=== PATIENT | female | born 1965 | race African-American/Black ===

== ENCOUNTER 2017-09-29 19:47 | Emergency (ER) | payer MEDICAID, SELFPAY ==
[2017-09-29 19:52] VITALS: PULSE 91; RESP 20; TEMP 36.9; O2SAT 98
--- NOTE | 2017-09-29 20:13 | ED.GENADUL ---
Disposition Clinical Impression: Acute cystitis Disposition: HOME Condition: Good Instructions: Urinary Tract Infection in Women (ED) Additional Instructions: Please follow-up with [facility]. Please follow-up with dentistry for recheck. Stop penicillin while you are taking the Keflex. Return to the emergency department for any acute concerns. Continue any regular medications Prescriptions: Cephalexin [Keflex] 500 mg PO TID #20 cap Medical Decision Making - Lab Data Laboratory Results - last 24 hr 09/29/17 20:04 Urine Color Yellow Urine Clarity Sl cloudy Urine pH 6.5 Ur Specific Pennock 1.015 Urine Protein Negative Urine Ketones Negative Urine Blood Moderate H Urine Nitrite Negative Urine Bilirubin Negative Urine Urobilinogen 0.2 Ur Leukocyte Esterase Small H Urine RBC 0-2 Urine WBC 5-10 Ur Epithelial Cells Rare Urine Crystals Negative Urine Bacteria Rare Urine Mucus Negative Urine Other Rare renal Ur Culture Indicated? Yes Urine Glucose Negative Results reviewed for labs ordered during visit: Yes - Medical Decision Making 52-year-old female presents with urinary urgency and frequency, she is recently taking penicillin for an odontogenic infection. She has multiple dental caries, was followed by [facility]. Is also followed by [facility] for primary care. She is afebrile, well-appearing, no concerning findings on examination of the oropharynx. History and urinalysis are consistent with acute cystitis. Will switch her antibiotic to Keflex. She will follow-up with [facility]. History of Present Illness - General Chief complaint: Urinary Stated complaint: UTI Time Seen by Provider: 09/29/17 20:12 Source: patient, RN notes reviewed Mode of arrival: ambulatory Limitations: no limitations - History of Present Illness Initial comments: Urinary tract infection: 52-year-old female reports the gradual onset yesterday of intermittent episodes of urinary urgency and frequency with burning of urination. She has had no vaginal discharge or bleeding. Has not been injured in any way. She denies abdominal pain, nausea, vomiting. She has not had a fever or back pain. There is no exacerbating or ameliorating factors. She is currently living in [place] and what she states is a safe home. Denies other complaints at this time. She has been taking penicillin for 6 days for a tooth infection, she has multiple dental caries and is followed by [facility]. - Related Data Cephalexin [Keflex] 500 mg PO TID #20 cap 09/29/17 Allergies Allergy/AdvReac Type Severity Reaction Status Date / Time No Known Allergies Allergy Unverified 09/29/17 19:56 Review of Systems Other: 8 systems reviewed, otherwise negative Past Medical History - Past Medical History Heart murmur, TBI Surgical history: no surgical history - Social History Alcohol use: none Drug use: none General Exam - General Limitations: no limitations General appearance: alert, in no apparent distress - Head Head exam: Present: atraumatic, normocephalic - Eye Eye exam: Present: normal apperance, PERRL, EOMI - ENT ENT exam: Present: normal exam, other (Multiple dental fractures, dental caries, partial teeth, previous extractions, proximal 50% of the teeth are remaining, there is no fluctuance, swelling, uvula is midline, tonsillar pillars are symmetric.). Absent: normal orophraynx - Neck Neck exam: Present: normal inspection, full ROM. Absent: tenderness - Respiratory Respiratory exam: Present: normal lung sounds bilaterally. Absent: respiratory distress, chest wall tenderness - Cardiovascular Cardiovascular Exam: Present: regular rate, normal rhythm. Absent: systolic murmur - GI/Abdominal GI/Abdominal exam: Present: soft. Absent: distended, tenderness - Neurological Exam Neurological exam: Present: alert, oriented X3 - Psychiatric Psychiatric exam: Present: normal mood, other (Patient has an odd affect, she is somewhat wandering historian at times, she is alert and oriented, able to demonstrate linear thought and focused responses on certain points when questioned specifically during the history.) Course Vital Signs - 24 hr 09/29/17 19:52 Temperature 36.9 C Pulse 91 H Respiratory 20 Rate Pulse Oximetry 98
[2017-09-29 20:21] LABS: Bilirubin Negative (Negative); Blood Moderate (Negative); Clarity Sl Cloudy; Glucose Negative (Negative); Ketones Negative (Negative); Leukocyte Esterase Small (Negative); Nitrite Negative (Negative); Specific Gravity 1.015 (1.005-1.025); Urobilinogen 0.2 EU/dL (Up TO 0.2); pH 6.5 (5-8)
[2017-09-29] MEDS: Cephalexin 500 MG CAP PO (20:25)
[2017-09-29 20:36] LABS: Bacteria Rare HPF (Negative); C & S Indicated? Yes; Crystals Negative HPF (Negative); Epithelial Cells Rare HPF (Negative); Mucus Negative (Negative); Other Cells Rare Renal (Negative); RBC 0-2 (0-2)
== END 2017-09-29 20:24 | disposition home or self-care (01) ==
PROVIDERS: Emergency Provider Emergency Medicine; PCP Specialist/Technologist Athletic Trainer
DX: N30.00 Acute cystitis without hematuria (principal)
CPT/HCPCS: 99283; 81003; 81015; 87086

== ENCOUNTER 2017-10-02 22:26 | Emergency (ER) | payer MEDICAID, SELFPAY ==
[2017-10-02 22:28] VITALS: BP 121/94; PULSE 81; RESP 18; TEMP 36.5; O2SAT 97
--- NOTE | 2017-10-02 23:07 | ED.GENADUL ---
Disposition Clinical Impression: Paranoia, Delusions, UTI (urinary tract infection) Disposition: STILL A PATIENT Condition: Stable Medical Decision Making - Lab Data Results reviewed for labs ordered during visit: Yes - Medical Decision Making Patient was here just a few days ago diagnosed with UTI. She has taken a few doses of the antibiotics but never actually got the prescription filled. Will recheck urinalysis here tonight as well as to urine drug screen. She denies any drug use. She does not appear to be intoxicated. She has no physical complaints. I will medically clear her to be evaluated by mental health. 00:01 - Patient was interviewed by mental health. After review of mental health notes when she was at the police station and interviewing the police commissioner that transported her from [place], we have decided to EE her and ask for a secondary certification by state psychiatrist. When I went in to discuss this with the patient, she initially was calm but quickly escalated and started accusing the state, the police, the town of [place] to be persecuting her and preventing her from living her free life. She continued to escalate and claims that [place] was a state full of transgender homosexuals who jump on straight people and attack them all the time. She became more more agitated. [place] police commissioner who was present reports that this is how she was at the police station. We will go ahead and get baseline labs for medical clearance. I will EE her and hold her for secondary certification. She will receive Ativan 1 mg p.o. for sedation. She has a one-to-one patient observer. Care management aware and will file a care plan. Patient does have evidence of UTI still so we will continue the Keflex she had been prescribed previously. 07:30 - Patient's labs are good. WBC a little up, likely related to UTI. Continue Keflex. Drug screen positive for THC. Other labs fine. Patient has been sleeping since Ativan given last night. Patient will be signed over to Dr. Martel. History of Present Illness - General Chief complaint: PsychEval Stated complaint: EVAL Time Seen by Provider: 10/02/17 22:27 Source: patient, police Mode of arrival: ambulatory - History of Present Illness Initial comments: Patient is brought in for mental health evaluation on a staff internist office based only's order after being arrested in [place] and becoming agitated, belligerent, threatening. Patient had been arrested on a trespass order. She felt that she was unjustly arrested. She had become highly agitated and belligerent while under arrest. She was evaluated by mental health at the police station. On staff internist office based only's order she was brought to the ED for mental health eval and possible EEG. On arrival here she is calm and cooperative. She has no physical complaints other than chronic pain which is unchanged. She was seen here a few days ago for urinary symptoms and while she has only taken some of her antibiotic, she states that the symptoms have resolved. She denies being suicidal. She denies being homicidal. She denies hearing voices or seeing things. In speaking with her there does appear to be some underlying paranoid thought going on, especially in regards to the police being in conclusion with higher bess. Per the [place] police commissioner who transported her, he has dealt with her for years. Her behavior over the last few weeks has been escalating. - Related Data Cephalexin [Keflex] 500 mg PO TID #20 cap 09/29/17 Allergies Allergy/AdvReac Type Severity Reaction Status Date / Time No Known Allergies Allergy Unverified 10/02/17 22:46 Review of Systems Constitutional: denies: chills, fever Eyes: denies: eye discharge, vision change ENT: denies: ear pain, congestion Respiratory: denies: cough, shortness of breath Cardiovascular: denies: chest pain Gastrointestinal: denies: abdominal pain, nausea, vomiting Genitourinary: denies: dysuria Musculoskeletal: denies: back pain Skin: denies: rash Neurological: denies: headache, weakness Psychiatric: denies: auditory hallucinations, visual hallucinations, homicidal thoughts, suicidal thoughts Past Medical History - Past Medical History Heart murmur, TBI, chronic pain Surgical history: no surgical history - Social History Smoking status: current everyday smoker Alcohol use: none Drug use: none General Exam - General Limitations: no limitations General appearance: alert, in no apparent distress - Head Head exam: Present: atraumatic, normocephalic - Eye Eye exam: Present: normal apperance - Neck Neck exam: Present: normal inspection - Respiratory Respiratory exam: Present: normal lung sounds bilaterally - Cardiovascular Cardiovascular Exam: Present: regular rate, normal rhythm, normal heart sounds - Extremities Exam Extremities exam: Present: normal inspection. Absent: pedal edema - Neurological Exam Neurological exam: Present: alert, oriented X3, CN II-XII intact, normal gait. Absent: motor sensory deficit - Psychiatric Psychiatric exam: Absent: anxious, manic, homicidal ideation, suicidal ideation - Skin Skin exam: Present: warm, dry, intact Course Vital Signs - 24 hr 10/02/17 22:28 Temperature 97.7 F Pulse 81 Respiratory 18 Rate Blood Pressure 121/94 Pulse Oximetry 97
[2017-10-02 23:12] LABS: Bilirubin Negative (Negative); Blood Moderate (Negative); Clarity Cloudy; Glucose Negative (Negative); Ketones Trace mg/dL (Negative); Leukocyte Esterase Trace (Negative); Nitrite Positive (Negative); Specific Gravity >= 1.030 (1.005-1.025); Urobilinogen 0.2 EU/dL (Up TO 0.2); pH 5.5 (5-8)
--- NOTE | 2017-10-02 23:12 | ED.GENADUL_ITS ---
Disposition Clinical Impression: Paranoia, Delusions, UTI (urinary tract infection) Disposition: STILL A PATIENT Condition: Stable Medical Decision Making - Lab Data Results reviewed for labs ordered during visit: Yes - Medical Decision Making Patient was here just a few days ago diagnosed with UTI. She has taken a few doses of the antibiotics but never actually got the prescription filled. Will recheck urinalysis here tonight as well as to urine drug screen. She denies any drug use. She does not appear to be intoxicated. She has no physical complaints. I will medically clear her to be evaluated by mental health. 00:01 - Patient was interviewed by mental health. After review of mental health notes when she was at the police station and interviewing the police records clerk that transported her from [place], we have decided to EE her and ask for a secondary certification by state psychiatrist. When I went in to discuss this with the patient, she initially was calm but quickly escalated and started accusing the state, the police, the town of [place] to be persecuting her and preventing her from living her free life. She continued to escalate and claims that [place] was a state full of transgender homosexuals who jump on straight people and attack them all the time. She became more more agitated. [place] police records clerk who was present reports that this is how she was at the police station. We will go ahead and get baseline labs for medical clearance. I will EE her and hold her for secondary certification. She will receive Ativan 1 mg p.o. for sedation. She has a one-to-one patient observer. Care management aware and will file a care plan. Patient does have evidence of UTI still so we will continue the Keflex she had been prescribed previously. 07:30 - Patient's labs are good. WBC a little up, likely related to UTI. Continue Keflex. Drug screen positive for THC. Other labs fine. Patient has been sleeping since Ativan given last night. Patient will be signed over to Dr. Martel. History of Present Illness - General Chief complaint: PsychEval Stated complaint: EVAL Time Seen by Provider: 10/02/17 22:27 Source: patient, police Mode of arrival: ambulatory - History of Present Illness Initial comments: Patient is brought in for mental health evaluation on a magisterial district judge's order after being arrested in [place] and becoming agitated, belligerent, threatening. Patient had been arrested on a trespass order. She felt that she was unjustly arrested. She had become highly agitated and belligerent while under arrest. She was evaluated by mental health at the police station. On magisterial district judge's order she was brought to the ED for mental health eval and possible EEG. On arrival here she is calm and cooperative. She has no physical complaints other than chronic pain which is unchanged. She was seen here a few days ago for urinary symptoms and while she has only taken some of her antibiotic, she states that the symptoms have resolved. She denies being suicidal. She denies being homicidal. She denies hearing voices or seeing things. In speaking with her there does appear to be some underlying paranoid thought going on, especially in regards to the police being in conclusion with higher bess. Per the [place] police records clerk who transported her, he has dealt with her for years. Her behavior over the last few weeks has been escalating. - Related Data Cephalexin [Keflex] 500 mg PO TID #20 cap 09/29/17 Allergies Allergy/AdvReac Type Severity Reaction Status Date / Time No Known Allergies Allergy Unverified 10/02/17 22:46 Review of Systems Constitutional: denies: chills, fever Eyes: denies: eye discharge, vision change ENT: denies: ear pain, congestion Respiratory: denies: cough, shortness of breath Cardiovascular: denies: chest pain Gastrointestinal: denies: abdominal pain, nausea, vomiting Genitourinary: denies: dysuria Musculoskeletal: denies: back pain Skin: denies: rash Neurological: denies: headache, weakness Psychiatric: denies: auditory hallucinations, visual hallucinations, homicidal thoughts, suicidal thoughts Past Medical History - Past Medical History Heart murmur, TBI, chronic pain Surgical history: no surgical history - Social History Smoking status: current everyday smoker Alcohol use: none Drug use: none General Exam - General Limitations: no limitations General appearance: alert, in no apparent distress - Head Head exam: Present: atraumatic, normocephalic - Eye Eye exam: Present: normal apperance - Neck Neck exam: Present: normal inspection - Respiratory Respiratory exam: Present: normal lung sounds bilaterally - Cardiovascular Cardiovascular Exam: Present: regular rate, normal rhythm, normal heart sounds - Extremities Exam Extremities exam: Present: normal inspection. Absent: pedal edema - Neurological Exam Neurological exam: Present: alert, oriented X3, CN II-XII intact, normal gait. Absent: motor sensory deficit - Psychiatric Psychiatric exam: Absent: anxious, manic, homicidal ideation, suicidal ideation - Skin Skin exam: Present: warm, dry, intact Course Vital Signs - 24 hr 10/02/17 22:28 Temperature 97.7 F Pulse 81 Respiratory 18 Rate Blood Pressure 121/94 Pulse Oximetry 97
[2017-10-02 23:17] LABS: *AMPHETAMINES SCREEN URINE Negative (Negative); *BARBITURATES SCREEN URINE Negative (Negative); *BENZODIAZEPINES SCREEN URINE Negative (Negative); Cannabinoids THC POSITIVE (Negative); Cocaine Screen,Urine Negative (Negative); METHADONE URINE SCREEN Negative (Negative); OPIATES URINE SCREEN Negative (Negative)
[2017-10-02 23:18] LABS: Tricyclic Antidepressants Negative (Negative)
[2017-10-02 23:36] LABS: Bacteria Many HPF (Negative); C & S Indicated? Yes; Casts Negative LPF (Negative); Crystals Negative HPF (Negative); Epithelial Cells Few HPF (Negative); Mucus Trace (Negative); Other Cells Few Transitional (Negative); RBC >50 (0-2); WBC >50 HPF (0-5)
--- NOTE | 2017-10-02 23:57 | PDOC.ERCMPRO ---
Date of Service: 10/02/17 Time of Service: 23:57 Care Management Progress Note Raven is an INVOLUNTARY admission to the the ED for psychiatric stabilization. Raven has been evaluated by mental health and medical provider it is determined that she is in need of psychiatric stabilization and transfer to psychiatric facility. Huddle to review and initiate the safety plan, address patients needs, and goals of care: Present: [facility] Mental health, primary nurse (ED), provider (ED), RN production department supervisor and CM. Update bed availability per [facility]: There are no available beds tonight at psychiatric facility. [facility] and crisis mental health front line staff will continue to search for a psychiatric facility for Raven. The following safety plan is put into place to adhere to safety plan, behavioral status and Raven's level of engagement. Raven is Involuntary FOR INPATIENT PSYCHIATRIC STABILIZATION. Safety plan has been established with the care team, to adhere to patient goals, identify restrictions based on behavioral status, address nutrition, and determine allowed personal belongings, tools for hygiene and personal care. Determine level of activity including ambulation, level of supervision, visitors, and determine privileges based on behaviors and level of engagement by pt. SAFETY PLAN: 1. Will remain on suicide precautions and in paper clothes. 2. Will remain in room under direct supervision of one-on-one staff at all times provided by [facility] trained SEASONAL SALES ASSOCIATE, ASSOCIATE PROFESSOR OF LITERACY tray service worker. 3. May have paper cups, plates, finger foods only. 4. Follow [facility] Management of the Admitted Behavioral Health Patient policy 5. Comfort bath system only. 6. No personal belongings In the room 7. No visitors at this time. 8. Raven shall be escorted by license staff when outside the room, and to and from the bathroom. 9. May have television if available in the room. Patient is currently involuntarily and will remain in EE status at [facility] and seeking inpatient admission when a bed becomes available. [facility] Frontline Dental Hygiene Administrative Assistant will continue seeking placement. Department of mental health has been notified, second cert time has not been confirmed at this time. Please contact the [employer] Navigation Installer Improvement Leader ([phone]) and [facility] Dental Hygiene Administrative Assistant ([phone]) for any needed changes in the Safety Plan.
--- NOTE | 2017-10-03 00:07 | CMPROGNOTE_ITS ---
Date of Service: 10/02/17 Time of Service: 23:57 Care Management Progress Note Raven is an INVOLUNTARY admission to the the ED for psychiatric stabilization. Raven has been evaluated by mental health and medical provider it is determined that she is in need of psychiatric stabilization and transfer to psychiatric facility. Huddle to review and initiate the safety plan, address patients needs, and goals of care: Present: [facility] Mental health, primary nurse (ED), provider (ED), RN fashion supervisor and CM. Update bed availability per [facility]: There are no available beds tonight at psychiatric facility. [facility] and crisis mental health front line staff will continue to search for a psychiatric facility for Raven. The following safety plan is put into place to adhere to safety plan, behavioral status and Raven's level of engagement. Raven is Involuntary FOR INPATIENT PSYCHIATRIC STABILIZATION. Safety plan has been established with the care team, to adhere to patient goals , identify restrictions based on behavioral status, address nutrition, and determine allowed personal belongings, tools for hygiene and personal care. Determine level of activity including ambulation, level of supervision, visitors , and determine privileges based on behaviors and level of engagement by pt. SAFETY PLAN: 1. Will remain on suicide precautions and in paper clothes. 2. Will remain in room under direct supervision of one-on-one staff at all times provided by [facility] trained SENIOR ARCHITECT/DESIGN MANAGER, SENIOR RESERVOIR ENGINEER clinical trial educator. 3. May have paper cups, plates, finger foods only. 4. Follow [facility] Management of the Admitted Behavioral Health Patient policy 5. Comfort bath system only. 6. No personal belongings In the room 7. No visitors at this time. 8. Raven shall be escorted by license staff when outside the room, and to and from the bathroom. 9. May have television if available in the room. Patient is currently involuntarily and will remain in EE status at [facility] and seeking inpatient admission when a bed becomes available. [facility] Frontline Rn Transitional will continue seeking placement. Department of mental health has been notified, second cert time has not been confirmed at this time. Please contact the Midwife Wood Machine Carver ([phone]) and [facility] Rn Transitional ([phone]) for any needed changes in the Safety Plan.
[2017-10-03] MEDS: LORazepam 1 MG TAB PO (00:10)
[2017-10-03] MEDS: Cephalexin 500 MG CAP PO (00:29)
[2017-10-03 00:46] LABS: Abs Immature Grans 0.03 k/cumm (0.0-0.09); Absolute Basophil Count 0.02 k/cumm (0.0-0.2); Absolute Eosinophil Count 0.03 k/cumm (0.0-0.7); Absolute Lymphocyte Count 2.67 k/cumm (1.2-3.4); Absolute Neutrophil Count 11.56 k/cumm (1.2-6.7); Basophils % 0.1; Eosinophils % 0.2; HCT 41.6 % (36.0-46.0); HGB 14.5 g/dL (12.0-15.5); Immature Grans % 0.2; Lymphocytes % 17.5; Mean Corp. HGB Concentration 34.9 g/dL (32.0-36.0); Mean Corpuscular Hemoglobin 30.3 pg (27.0-33.0); Mean Platelet Volume 10.2 fL (8.0-11.0); Monocytes % 6.2; Neutrophils % 75.8; Platelet Count 290 x1000/uL (130-400); RBC 4.78 m/cumm (4.00-5.20); RBC Distribution Width 13.3 % (11.7-14.6); White Blood Cell Count 15.25 k/cumm (4.4-10.8)
[2017-10-03 00:47] LABS: Absolute Monocyte Count 0.95 k/cumm (0.11-0.7)
[2017-10-03 01:16] LABS: Salicylate 3.9 mg/dL (2.8-20.0)
[2017-10-03 01:17] LABS: Acetaminophen < 2 ug/mL (10-30)
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
[2017-10-03 01:20] LABS: ALT 18 U/L (12-78); AST 18 U/L (15-37); Albumin 3.7 g/dL (3.4-5.0); Alkaline Phosphatase 82 U/L (46-116); Anion Gap 6.8 mmol/L (3-11); BUN 20 mg/dL (7-18); Bilirubin, Total 0.6 mg/dL (0.2-1.0); CO2 26.2 mmol/L (21.0-32.0); CREATININE 0.68 mg/dL (0.55-1.02); Calcium 8.9 mg/dL (8.5-10.1); Chloride 106 mmol/L (98-107); Glucose 101 mg/dL (70-100); Potassium 3.8 mmol/L (3.5-5.1); Sodium 139 mmol/L (136-145); TSH 0.84 uIU/mL (0.358-3.74); Total Protein 7.1 g/dL (6.4-8.2)
[2017-10-03 01:22] LABS: ETHANOL BLOOD < 3.0 mg/dL (<3)
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
--- NOTE | 2017-10-03 03:17 | NUR.NOTE ---
Nursing Note: Pt has slept most of this shift. 1:1 Pt observer has been present. Cooperative w/staff.
--- NOTE | 2017-10-03 08:46 | PDOC.ERCMPRO ---
Care Management Progress Note 10/03-Called [facility] this am. They are not taking any psychiatric patients from outside their area, only from their ED. Called [facility] and spoke with Andres. Andres stated he wasn't sure if they would be able to accept any EE's today, but was willing to look at the referral and have that discussion with the physician. Referral along with first EE cert, faxed to Andres at [facility] this am. Called [facility] and spoke with Estelita. Raven is an EE and will need a second cert. Requested that a second cert be done prior to 5 PM. Estelita will reach out to the psychiatrists on today to see if we can have second cert this afternoon. Dr. Martel and Maria Esther SALEEM aware of the above.
--- NOTE | 2017-10-03 08:49 | CMPROGNOTE_ITS ---
Care Management Progress Note 10/03-Called [facility] this am. They are not taking any psychiatric patients from outside their area, only from their ED. Called [facility] and spoke with Andres. Andres stated he wasn't sure if they would be able to accept any EE's today, but was willing to look at the referral and have that discussion with the physician. Referral along with first EE cert, faxed to Andres at [facility] this am. Called [facility] and spoke with Estelita. Raven is an EE and will need a second cert. Requested that a second cert be done prior to 5 PM. Estelita will reach out to the psychiatrists on today to see if we can have second cert this afternoon. Dr. Martel and Maria Esther SALEEM aware of the above.
--- NOTE | 2017-10-03 11:54 | ED.FU_ITS ---
Disposition Clinical Impression: Paranoia, Delusions, UTI (urinary tract infection) Disposition: HOME Condition: Stable Instructions: Urinary Tract Infection in Women (ED) Additional Instructions: Drink plenty fluids and get plenty of rest. Fill your prescription for Keflex that you received this week and finish completely. Follow-up with your mental health as directed. Return to the emergency department with any worsening or new concerning symptoms. Medical Decision Making - Lab Data Laboratory Tests 10/02/17 10/02/17 10/03/17 22:50 22:50 00:40 WBC RBC Hgb Hct MCV MCH MCHC RDW Plt Count MPV Immature Gran % Neutrophils % Lymphocytes % Monocytes % Eosinophils % Basophils % Absolute Neutrophils Absolute Lymphocytes Absolute Monocytes Absolute Eosinophils Absolute Basophils Sodium 139 Potassium 3.8 Chloride 106 Carbon Dioxide 26.2 Anion Gap 6.8 BUN 20 H Creatinine 0.68 Estimated GFR/1.73 m2 >= 60.00 Glucose 101 H Calcium 8.9 Total Bilirubin 0.6 AST 18 ALT 18 Alkaline Phosphatase 82 Total Protein 7.1 Albumin 3.7 TSH 0.84 Urine Color Yellow Urine Clarity Cloudy Urine pH 5.5 Ur Specific [place] >= 1.030 H Urine Protein 30 H Urine Ketones Trace H Urine Blood Moderate H Urine Nitrite Positive H Urine Bilirubin Negative Urine Urobilinogen 0.2 Ur Leukocyte Esterase Trace H Urine RBC >50 H Urine WBC >50 Ur Epithelial Cells Few Urine Crystals Negative Urine Bacteria Many Urine Casts Negative Urine Mucus Trace Urine Other Few transitional Ur Culture Indicated? Yes Urine Glucose Negative Salicylates Urine Opiates Screen Negative Urine Methadone Screen Negative Acetaminophen Ur Barbiturates Screen Negative Ur Tricyclics Screen Negative Ur Amphetamines Screen Negative U Benzodiazepines Scrn Negative Urine Cocaine Screen Negative Ur THC Screen Positive Ethyl Alcohol < 3.0 10/03/17 10/03/17 00:40 00:40 WBC 15.25 H RBC 4.78 Hgb 14.5 Hct 41.6 MCV 87.0 MCH 30.3 MCHC 34.9 RDW 13.3 Plt Count 290 MPV 10.2 Immature Gran % 0.2 Neutrophils % 75.8 Lymphocytes % 17.5 Monocytes % 6.2 Eosinophils % 0.2 Basophils % 0.1 Absolute Neutrophils 11.56 H Absolute Lymphocytes 2.67 Absolute Monocytes 0.95 H Absolute Eosinophils 0.03 Absolute Basophils 0.02 Sodium Potassium Chloride Carbon Dioxide Anion Gap BUN Creatinine Estimated GFR/1.73 m2 Glucose Calcium Total Bilirubin AST ALT Alkaline Phosphatase Total Protein Albumin TSH Urine Color Urine Clarity Urine pH Ur Specific [place] Urine Protein Urine Ketones Urine Blood Urine Nitrite Urine Bilirubin Urine Urobilinogen Ur Leukocyte Esterase Urine RBC Urine WBC Ur Epithelial Cells Urine Crystals Urine Bacteria Urine Casts Urine Mucus Urine Other Ur Culture Indicated? Urine Glucose Salicylates 3.9 Urine Opiates Screen Urine Methadone Screen Acetaminophen < 2 L Ur Barbiturates Screen Ur Tricyclics Screen Ur Amphetamines Screen U Benzodiazepines Scrn Urine Cocaine Screen Ur THC Screen Ethyl Alcohol - Medical Decision Making Please see previous providers notes for initial presentation, exam and plan. Patient is a 52-year-old female with history of paranoid schizophrenia who presented for agitation, threatening behavior after rested at police station on a trespassing violation. Patient was calm on arrival to ED and became agitated when discussing with physician in a dose of Ativan was given. She has remained calm overnight. She denied suicidal homicidal ideation. She is medically cleared. Patient had an EE and certificate completed based on review of previous mental health notes per Dr. Coreas. Patient was not admitted to the floor overnight due to staffing issues on the floor. Plan this morning was for reevaluation and consideration of a second certificate after discussion with psychiatrist. 1130 --care management Anaya discussed with psychiatrist and she declined completing E paperwork and second certificate as she does not feel patient qualifies. She believes that patient should have been sent to alf for her behavior with police rather than taken to the ED. Anaya discussed with mental health who will come to reevaluate and likely discharged home. 1300 --patient evaluated by mental health and cleared for discharge. Plan is for patient to follow-up with mental health for counseling as directed. Instructed return with any concerns. Patient was seen here 4 days ago and diagnosed with UTI given prescription for Keflex but she did not fill. She was instructed to fill this and finish. Patient has been ambulatory around the ED in no acute distress and cooperative and pleasant. Upon patient discharge, patient states she does not have her prescription for Keflex. Nurse called prescription for keflex into patient's pharmacy. Care Signed Out By:: Dr. Coreas - Continuation of Care Continuation of Care Plan: Case endorsed from Dr. Coreas to follow-up with mental health.
[2017-10-03 14:14] VITALS: BP 100/60; PULSE 78; RESP 16; TEMP 37; O2SAT 98
--- NOTE | 2017-10-03 15:46 | ERMH_ITS ---
Presenting issue: *How did they arrive here at ER and why did they come: Patient was brought into the hospital by police with a warrant for an emergency evaluation. The patient failed the second certification and is no longer on EE status. Precipitating Factors: *Assessment of Safety SI / HI- (Address delusions if pertaining to the SI/ HI) The patient denies SI, HI, and delusions. Disposition: *Behavior: Patient is laying down on the bed with the lights off *Eye Contact: Patient makes eye contact when appropriate *Mood: Calm *Affect: Flat *Appetite: NA *Sleep (trouble falling/staying asleep): NA Plan: (please elaborate and include that physician is consulted with plan and/ or placement): The patient is released on a safety contract and will be set up with counseling services with [facility]. Provisional Diagnosis:(only if required by physician): [] AXIS 5 Case Handover: Done with ED nurse (name): [] Date & Time [] Huddle: done with ED staff (for boarding clients): [] Yes [] No Date /Time [] Referral for Case management: Has phone call for introduction been made [] Yes [] No Referral in EMR: Done and sent? [] Yes [] NO Clinicians Name and title and Signature: [Sinai Gaviria [facility] Emergency Clinician ] Make sure that you are photocopying and submitting this to [facility] records dept.to be scanned into chart
== END 2017-10-03 14:11 | disposition home or self-care (01) ==
LOC: ER 03-17 01:53
PROVIDERS: Emergency Medicine; Emergency Provider Physician Assistant; PCP Specialist/Technologist Athletic Trainer
DX: F22 Delusional disorders (principal); N39.0 Urinary tract infection, site not specified; B96.20 Unspecified Escherichia coli [E. coli] as the cause of diseases classified elsewhere
CPT/HCPCS: 36415; 80053; 80307; 81025; 87077; 99285; 80320; 80329; 81003; 81015; 84443; 85025; 87086; 87186; 99284

== ENCOUNTER 2018-06-21 00:11 | Emergency (ER) | payer MEDICAID, SELFPAY ==
[2018-06-21 00:22] VITALS: PULSE 74; RESP 16; TEMP 37.1; O2SAT 97
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
== END 2018-06-21 00:54 | disposition home or self-care (01) ==
LOC: ER 00:56
PROVIDERS: Emergency Provider Emergency Medicine; PCP Specialist/Technologist Athletic Trainer
DX: S00.211A Abrasion of right eyelid and periocular area, initial encounter (principal); S60.511A Abrasion of right hand, initial encounter; W57.XXXA Bitten or stung by nonvenomous insect and other nonvenomous arthropods, initial encounter; F20.0 Paranoid schizophrenia; Z59.0 Homelessness
CPT/HCPCS: 99282